=== PATIENT | female | born 1995 | race Caucasian/White ===

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

== ENCOUNTER 2018-11-12 10:22 | Emergency (ER) | payer BC, OTHER ==
[~2018-11-12] VITALS: Ht 157.5 cm; Wt 47.6 kg
[~2018-11-12 10:22] MED LIST: DEPO-PROVE150 MG/11 IM
[2018-11-12 10:45] LABS: URINE BLOOD 3+ (Negative); URINE CLARITY CLEAR; URINE COLOR YELLOW; URINE GLUCOSE-RANDOM* NEGATIVE (Negative); URINE KETONES NEGATIVE (Negative); URINE LEUKOCYTES-REFLEX TRACE (Negative); URINE NITRITE-REFLEX NEGATIVE (Negative); URINE PROTEIN (DIPSTICK) 1+ (Negative); URINE SPECIFIC GRAVITY >= 1.030 (1.005-1.035)
[2018-11-12 10:47] LABS: ICTOTEST (BILI CONFIRMATORY) Negative (Negative); URINE BILIRUBIN NEGATIVE (Negative)
[2018-11-12 10:54] LABS: BACTERIA-REFLEX None Seen /HPF (None Seen); CASTS None Seen /LPF (None Seen); CRYSTALS None Seen /LPF (None Seen); MUCUS >6 Heavy strn/LPF (None Seen); SQUAMOUS 0-3 Few /LPF (0-3); URINE RBC >20 Many /HPF (0-2); URINE WBC-REFLEX 0-5 Rare /HPF (0-5)
[2018-11-12 11:46] LABS: ABSOLUTE NEUTROPHILS 7.5 thou/uL (1.4-8.2); BASOPHILS 0.3 % (0.0-2.0); HEMATOCRIT 39.9 % (37.0-47.0); HEMOGLOBIN 13.7 gm/dL (12.0-15.0); LYMPHOCYTES 12.2 % (24.0-44.0); MCH 31.8 pg (26.0-34.0); MCHC 34.5 g/dL (28.0-37.0); MCV 92.3 fL (80.0-100.0); MONOCYTES 4.9 % (1.0-8.0); PLATELET COUNT 245 thou/uL (150-400); POLYS 80.6 % (36.0-66.0); RBC 4.32 mil/uL (4.20-5.00); RDW 12.8 % (10.5-14.5); WBC 9.3 thou/uL (4.0-11.0)
[2018-11-12 12:00] LABS: CALCIUM 8.6 mg/dL (8.5-10.1); CREATININE 0.8 mg/dL (0.6-1.0); POTASSIUM 3.8 mmol/L (3.5-5.1)
[2018-11-12] MEDS ORDERED: MOBIC7.5 MG PO (12:37)
[2018-11-12 12:48] VITALS: BP 98/57
== END 2018-11-12 12:50 | disposition home or self-care (01) ==
LOC: ER 10:22
PROVIDERS: Physician Assistant
DX: N94.6 Dysmenorrhea, unspecified (principal); R11.2 Nausea with vomiting, unspecified

== ENCOUNTER 2020-01-16 16:23 | Emergency (ER) | payer OTHER ==
[~2020-01-16] VITALS: Ht 154.9 cm; Wt 42.8 kg
[~2020-01-16 16:23] MED LIST changes: +MOBIC7.5 MG PO
[2020-01-16 16:56] VITALS: BP 116/82
[2020-01-16] MEDS ORDERED: PREDNISONE 20 M20 MG PO (17:20)
[2020-01-16] MEDS ORDERED: PENICILLIN V P500 MG PO (17:20)
== END 2020-01-16 17:39 | disposition home or self-care (01) ==
LOC: ER 16:23
DX: J02.0 Streptococcal pharyngitis (principal); Z79.899 Other long term (current) drug therapy